=== PATIENT | male | born 1995 | race Caucasian/White ===

== ENCOUNTER 2017-01-08 10:12 | Emergency (ER) | payer BC ==
[2017-01-08 10:26] LABS: Hematocrit 39.3 % (42.0-52.0); Hemoglobin 13.9 gm/dL (13.5-18.0); Mean Cell Volume 85.4 fl (78-100); Mean Corpuscular Hemoglobin 30.2 pg (27-31); Mean Corpuscular Hgb Conc 35.4 g/dl (32-36); Mean Platelet Volume 9.5 fl (6.0-9.5); Neutrophil # 12.1 K/mm3 (1.3-6.0); Neutrophil % 84.2 % (42-75.0); Platelet Count 193 K/mm3 (150-450); Red Cell Distribution Width 12.3 % (11.5-14.0); White Blood Count 14.3 K/mm3 (4.0-10.5)
[2017-01-08] MEDS ORDERED: ACETAMINOPHEN 500 MG TABLET PO ONE (10:31)
--- NOTE | 2017-01-08 10:31 | ERNOTE ---
Chest Pain/Cardiac HPI Date of Service: 01/08/17 Chief Complaint: Chest Pain Time Seen by Provider: 01/08/17 10:24 Source: patient, RN notes reviewed Exam Limitations: no limitations Allergies/Adverse Reactions: Allergies amoxicillin [Amoxicillin] Allergy (Unknown, Verified 01/08/17 10:20) Home Medications: HOME MEDICATIONS NK [No Home Medication] 11/24/13 [Last Taken Unknown] Narrative: Harry is a 21-year-old male who presents to the emergency Department by private vehicle for chest pain that began last evening and a headache that has been ongoing for 3 days. He reports the chest pain is intermittent and worsens with activity or coughing. He has not taken anything for his symptoms today, but reports taking ibuprofen last night. He reports one episode of vomiting last evening, but he denies any nausea or vomiting today. He also reports a cough and a sore throat. He denies any sick contacts. Timing: intermittent Severity/Quality: moderate, aching Location: left chest Chest Pain Radiation: no radiation Activities at Onset: none Nitro Today/Relief: no nitro taken today Aspirin Treatment Today: no aspirin today Associated Symptoms: Present: headache, cough, fever/chills. Absent: dizziness , syncope, shortness of breath, palpitations, abdominal pain, back pain Prior Chest Pain/Cardiac Workup: Reports: no prior cardiac workup. Denies: prior chest pain Prior Treatment: Denies: recently seen, treated by physician Review of Systems - Review of Systems Constitutional: Present: fever, chills, fatigue, malaise. Absent: recent illness EYE: Absent: eye pain, eye discharge ENT: Present: sore throat. Absent: ear pain, nose congestion Respiratory: Present: cough. Absent: shortness of breath, wheezing Cardiology: Present: chest pain. Absent: palpitations, syncope, edema Gastrointestinal/Abdominal: Present: See HPI. Absent: diarrhea, abdominal pain Genitourinary: Present: no symptoms reported Musculoskeletal: Absent: muscle pain, joint pain Skin: Absent: rash, lesions, lumps Neurological: Present: headache. Absent: dizziness/light-headedness Endocrine: Present: no symptoms reported Hematologic/Lymphatic: Present: no symptoms reported Psych: Absent: anxiety, depressed - Patient's Past Medical History Patient History - Medical: No pertinent hx Patient History - Cardiac/Respiratory: No pertinent hx Patient History - Cancer: No Hx of Cancer Patient History - Surgical Procedures: T & A, ENT - Family History Mother Family History - Medical: No pertinent hx Father Family History - Medical: No pertinent hx - Social History Living Situations: home Smoking Status: Never smoker Have you smoked in the past 12 months: No Alcohol Use: none Drug Use: none Physical Exam - Physical Exam General Appearance: Present: wd/wn, alert, no apparent distress, other - Appears uncomfortable Head Exam: Present: normal inspection Eye Exam: Normal inspection: bilateral Ears, Nose, Throat: Present: pharyngeal erythema, tonsillar swelling. Absent: abnormal TM (R), abnormal TM (L), nasal congestion, tonsillar exudate, dry mucous membranes Neck: Present: normal inspection, supple Respiratory: Present: no respiratory distress, normal breath sounds, no accessory muscle use, lungs clear, chest tenderness - Left chest Cardiovascular/Chest: Present: no murmur, normal peripheral pulses, tachycardia Gastrointestinal/Abdominal: Present: normal bowel sounds, nontender, nondistended, soft Back Exam: Present: normal inspection Extremity Exam: Present: normal inspection Neurological Exam: Present: alert, oriented, normal mood/affect, no motor/ sensory deficits Skin Exam: Present: normal color, warm/dry ED Progress - Results and Orders Patient's Lab Results:: I have reviewed the patient's lab results. - Vital Signs Patient's Vital Signs:: I have reviewed the patient's vital signs. Vital Signs: Vital Signs 01/08/17 01/08/17 10:16 10:22 Temperature 38.9 C H Pulse Rate 109 H 110 H Respiratory 14 Rate Blood Pressure 127/70 O2 Sat by Pulse 100 Oximetry - EKG EKG: other - Sinus tach 108 with nonspecific T wave abnormality, no previous - X-Ray X-Ray #1 X-Ray: chest Interpretation: Reviewed by me X-ray Comments: Mild bronchitis, no acute cardiopulmonary process noted otherwise - Progress/Reassessment Chief Complaint: Chest Pain Progress:: Improved Plan - Plan Plan: Reports feeling somewhat better after Tylenol and Zofran (did vomit once). Chest pain has resolved but continues to report headache. Strep and mono are negative, but patient is febrile with cervical lymphadenopathy, enlarged tonsils , and no cough. He does report a cough, but he has not been noted to be coughing at all while in department. Will give Rocephin IM as he is PCN allergic. Will also give Toradol and Phenergan for headache. Departure - Departure Clinical Impression: Pharyngitis, acute Qualifiers: Pharyngitis/tonsillitis etiology: unspecified etiology Qualified Code(s): J02.9 - Acute pharyngitis, unspecified Disposition: Home Follow Up Needed Condition: Stable Instructions: Pharyngitis, [id number], Form - Excuse from Work, School, or Physical Activity Additional Instructions: Rest Push fluids Tylenol and/or ibuprofen for pain/fever Return if symptoms worsen
[2017-01-08 10:39] LABS: Prothrombin Time (Patient) 11.5 Seconds (9.4-11.4)
[2017-01-08 10:41] LABS: INR 1.11 INR (0.90-1.10); Partial Thrombolplastin Time 30.6 Seconds (24-32)
[2017-01-08 10:45] LABS: BUN/Creatinine Ratio 9.1 (9.0-21.6); Blood Urea Nitrogen 11 mg/dL (6-23); Chloride 100 mmol/L (97-106); Glucose * 117 mg/dL (70-110); Potassium 3.3 mmol/L (3.4-4.6); Sodium 137 mmol/L (132-142)
[2017-01-08 10:46] LABS: ALT 22 U/L (19-67); AST 14 U/L (0-48); Albumin * 3.9 gm/dl (3.4-5.0); Alkaline Phosphatase * 65 U/L (50-170); Anion Gap 12.5 mmol/L (6.8-13.8); Bilirubin, Total 0.5 mg/dL (0.0-1.1); Ca. Corrected For Albumin 8.1 mg/dL (8.4-10.2); Calcium * 8.3 mg/dL (7.9-10.9); Carbon Dioxide 27.8 mmol/L (24-32.6); Total Protein 7.4 gm/dL (6.2-8.2)
[2017-01-08 10:49] LABS: Troponin I Less than 0.017 ng/ml (0.00-0.10)
[2017-01-08] MEDS ORDERED: ONDANSETRON 4 MG TAB.RAPDIS ONE (11:01)
[2017-01-08] MEDS ORDERED: ONDANSETRON 4 MG TAB.RAPDIS PO ONE (11:01)
[2017-01-08] MEDS ORDERED: KETOROLAC TROMETHAMINE 60 MG/2 ML VIAL IM ONE ×2 (11:36→11:42)
[2017-01-08] MEDS ORDERED: PROMETHAZINE HCL 25 MG/ML AMPUL IM ONE (11:36)
[2017-01-08] MEDS ORDERED: PROMETHAZINE HCL 25 MG/ML AMPUL ONE (11:42)
[2017-01-08] MEDS ORDERED: LIDOCAINE HCL/EPINEPHRINE 50 ML VIAL IJ ONE (11:44)
[2017-01-08 11:50] VITALS: BP 130/64
== END 2017-01-08 12:02 | disposition home or self-care (01) ==
LOC: ER 10:12
DX: R07.89 Other chest pain (principal); J02.9 Acute pharyngitis, unspecified; R00.0 Tachycardia, unspecified; J20.9 Acute bronchitis, unspecified; R51 Headache

== ENCOUNTER 2017-01-09 15:54 | Emergency (ER) | payer BC ==
[2017-01-09] MEDS ORDERED: NITROGLYCERIN 0.4 MG/TAB BTL SL ONE ×3 (16:12→16:23)
[2017-01-09] MEDS ORDERED: ASPIRIN 81 MG TAB.CHEW PO ONE (16:14)
[2017-01-09] MEDS ORDERED: CLOPIDOGREL BISULFATE 75 MG TABLET PO STA (16:16)
[2017-01-09] MEDS ORDERED: HEPARIN SODIUM,PORCINE 5,000 UNITS/ML VIAL IV ONE (16:17)
[2017-01-09] MEDS ORDERED: NORMAL SALINE 1,000 ML IV ONE (16:20)
[2017-01-09 16:24] LABS: Hematocrit 36.8 % (42.0-52.0); Hemoglobin 12.6 gm/dL (13.5-18.0); Mean Corpuscular Hemoglobin 29.8 pg (27-31); Mean Corpuscular Hgb Conc 34.2 g/dl (32-36); Mean Platelet Volume 9.8 fl (6.0-9.5); Platelet Count 164 K/mm3 (150-450); Red Blood Count 4.23 M/mm3 (4.7-6.0); Red Cell Distribution Width 12.6 % (11.5-14.0); White Blood Count 13.2 K/mm3 (4.0-10.5)
[2017-01-09] MEDS ORDERED: MORPHINE SULFATE 2 MG/ML DISP.SYRIN ONE (16:24)
[2017-01-09] MEDS ORDERED: ONDANSETRON HCL/PF 2 MG/ML VIAL IV ONE (16:24)
[2017-01-09] MEDS ORDERED: ONDANSETRON HCL/PF 2 MG/ML VIAL ONE (16:24)
[2017-01-09] MEDS ORDERED: MORPHINE SULFATE 2 MG/ML DISP.SYRIN IV ONE (16:25)
[2017-01-09 16:30] LABS: Total Cells Counted 100
[2017-01-09 16:42] LABS: Atypical (Reactive) Lymph 4 % (0-2); Lymphocyte 11 % (20-51); Monocyte 8 % (0-9); Neutrophil 77 % (42-75); Neutrophil # 10.2 K/mm3 (1.3-6.0); Platelet Estimate Normal (NORMAL)
[2017-01-09 16:43] LABS: Hypochromia 1+
[2017-01-09 16:45] LABS: Albumin * 3.2 gm/dl (3.4-5.0); Anion Gap 11.4 mmol/L (6.8-13.8); Bilirubin, Total 0.5 mg/dL (0.0-1.1); Ca. Corrected For Albumin 8.4 mg/dL (8.4-10.2); Calcium * 8.1 mg/dL (7.9-10.9); Carbon Dioxide 27.2 mmol/L (24-32.6); Potassium 3.6 mmol/L (3.4-4.6); Total Protein 6.7 gm/dL (6.2-8.2)
--- NOTE | 2017-01-09 16:46 | ERNOTE ---
Chest Pain/Cardiac HPI Date of Service: 01/09/17 Chief Complaint: Chest Pain Source: patient Exam Limitations: no limitations, clinical condition - patient relates has had chest pain since yesterday, was seen in ed yesterday for pharyngitis Allergies/Adverse Reactions: Allergies amoxicillin [Amoxicillin] Allergy (Unknown, Verified 01/09/17 16:14) Home Medications: HOME MEDICATIONS NK [No Home Medication] 11/24/13 [Last Taken Unknown] Timing: constant, getting worse Severity/Quality: severe, aching, dull Location: substernal Chest Pain Radiation: no radiation Activities at Onset: none Modifying Factors - Improves: Present: nothing Nitro Today/Relief: 0.4 mg x 3, provided by ED Aspirin Treatment Today: provided by ED Associated Symptoms: Present: dizziness, diaphoresis, fever/chills, palpitations Prior Chest Pain/Cardiac Workup: Reports: no prior cardiac workup Prior Treatment: Reports: recently seen, treated by physician Review of Systems - Review of Systems Constitutional: Present: fever, chills EYE: Present: no symptoms reported ENT: Present: sore throat Respiratory: Present: no symptoms reported Cardiology: Present: chest pain Gastrointestinal/Abdominal: Present: nausea, vomiting Genitourinary: Present: no symptoms reported Musculoskeletal: Present: no symptoms reported Skin: Present: no symptoms reported Neurological: Present: no symptoms reported Endocrine: Present: no symptoms reported - Patient's Past Medical History Patient History - Medical: No pertinent hx Patient History - Cardiac/Respiratory: No pertinent hx Patient History - Cancer: No Hx of Cancer Patient History - Surgical Procedures: T & A, ENT Patient History - Other: None - Family History Mother Family History - Medical: No pertinent hx Father Family History - Medical: No pertinent hx Family History - Cardiac/Respiratory: No pertinent hx Family History - Cancer: No pertinent family hx - Social History Living Situations: home Psych History: No pertinent hx Alcohol Use: none Drug Use: none Physical Exam - Physical Exam General Appearance: Present: severe distress, anxious Head Exam: Present: normal inspection, no evidence of injury Eye Exam: Normal inspection: bilateral, PERRL: bilateral, EOMI: bilateral Ears, Nose, Throat: Present: normal ENT inspection Neck: Present: normal inspection, nontender Respiratory: Present: no respiratory distress, normal breath sounds, no accessory muscle use Cardiovascular/Chest: Present: tachycardia Peripheral Pulses: N=norm/S=strong/W=weak/B=bound/A=absent: Carotid (R): Normal , Carotid (L): Normal, Radial (R): Normal, Radial (L): Normal, Femoral (R): Normal, Femoral (L): Normal, Dorsalis-pedis (R): Normal, Dorsalis-pedis (L): Normal Gastrointestinal/Abdominal: Present: normal bowel sounds, nontender, nondistended, soft, no organomegaly Back Exam: Present: normal inspection, normal range of motion, no CVA tenderness , no vertebral tenderness Extremity Exam: Present: normal inspection, non-tender, normal range of motion, no edema Neurological Exam: Present: alert, oriented, normal mood/affect, no motor/ sensory deficits DTR: N=norm/NB=norm/brisk/A=abs/DD=dull/dimin/HC=hyperactive: Bicep (R): Normal , Bicep (L): Normal, Tricep (R): Normal, Tricep (L): Normal, Knee (R): Normal, Knee (L): Normal, Ankle (R): Normal, Ankle (L): Normal Skin Exam: Present: diaphoresis, pallor ED Progress - Vital Signs Patient's Vital Signs:: I have reviewed the patient's vital signs. Vital Signs: Vital Signs 01/09/17 01/09/17 15:56 16:09 Temperature 36.7 C Pulse Rate 87 67 Respiratory 12 16 Rate Blood Pressure 94/59 102/63 O2 Sat by Pulse 97 Oximetry - EKG EKG: ST elevation, other - acute mi EKG read: Interp. by me - Progress/Reassessment Chief Complaint: Chest Pain Progress:: Improved - case discussed with dr garzon at [facility] Departure - Departure Clinical Impression: Acute MO inferior lateral first episode care Disposition: [facility] Condition: Serious
[2017-01-09 16:54] LABS: Prothrombin Time (Patient) 12.6 Seconds (9.4-11.4)
[2017-01-09 16:56] LABS: INR 1.21 INR (0.90-1.10)
[2017-01-09 16:58] LABS: Partial Thrombolplastin Time Greater than 124.0 Seconds (24-32)
[2017-01-09 16:59] LABS: Troponin I 15.941 ng/ml (0.00-0.10)
[2017-01-09 20:15] VITALS: BP 91/64
== END 2017-01-09 17:25 | disposition short-term general hospital (02) ==
LOC: ER 15:54
DX: I21.29 ST elevation (STEMI) myocardial infarction involving other sites (principal)
CPT/HCPCS: 36415; 80053; 84484; 85025; 85610; 85730; 93005; 96374; 96375; 99285; J2405